=== PATIENT | female | born 1985 | race Caucasian/White ===

== ENCOUNTER 2024-11-09 19:14 | Emergency (ER) | payer OTHER ==
[~2024-11-09] VITALS: Ht 154.9 cm; Wt 68.6 kg
[2024-11-09] MEDS ORDERED: ALBUTEROL SULFATE 8 GM HOME.PACK INH ONE (21:45)
[2024-11-09] MEDS ORDERED: INHALER, ASSIST DEVICES 1 EACH SPACER MISC ONE (21:45)
[2024-11-09] MEDS ORDERED: AZITHROMYCIN 250 MG HOME.PACK PO ONE (21:45)
[2024-11-09] MEDS ORDERED: methylPREDNISolone 4 MG HOME.PACK PO ONE (21:45)
[2024-11-09 21:47] VITALS: BP 139/92
== END 2024-11-09 21:47 | disposition home or self-care (01) ==
LOC: ED 19:14
DX: J18.9 Pneumonia, unspecified organism (principal); Z88.0 Allergy status to penicillin
CPT/HCPCS: 71045; 94640; 99284-25; U0002